=== PATIENT | male | born 1965 | race Caucasian/White ===

== ENCOUNTER 2018-08-06 21:01 | Emergency (ER) | payer OTHER, MEDICAID, SELFPAY ==
[2018-08-06] VITALS (7 sets, daily range): BP systolic 145–178; BP diastolic 90–112; PULSE 74–126; RESP 15–22; TEMP 36.9; O2SAT 95–99; BMI 25.8
--- NOTE | 2018-08-06 21:22 | ED.DENTAL ---
HPI - Dental/Oral General Chief complaint: Dental/Oral Stated complaint: TOOTH PAIN Time Seen by Provider: 08/06/18 21:21 Source: patient Mode of arrival: ambulatory Limitations: no limitations History of Present Illness HPI Narrative: Patient is a 53-year-old male who presents with right-sided facial swelling. He states that this started 3 days ago after he tried to pull the tooth out with pliers. He sometimes has status bit of but overall seems to be tolerating his secretions. No redness he denies any fever. He says that his tetanus is up-to-date. He just needs some penicillin. Heart rate initially was tachycardic at triage but 15 minutes later does seem to be improved. MD Complaint: tooth pain 1. Teeth 32 through 28 are missing. Related Data Previous Rx's Medication Instructions Recorded amoxicillin-pot clavulanate 875 mg PO BID #14 tab 08/07/16 [Augmentin] metronidazole [Flagyl] 500 mg PO Q6H 10 Days #0 tab 02/28/17 amoxicillin 500 mg PO TID 7 Days #21 cap 08/06/18 amoxicillin 500 mg PO TID 7 Days #210 ml 08/06/18 Allergies Allergy/AdvReac Type Severity Reaction Status Date / Time No Known Drug Allergies Allergy Verified 08/06/18 22:14 Review of Systems Review of Systems ROS Unobtainable: All systems reviewed & are unremarkable except as noted in HPI and below Constitutional Denies chills, Denies fever(s), Denies lethargy and Denies weakness Eyes Denies change in vision, Denies eye discharge, Denies irritation and Denies loss of vision ENT Ears, Nose, Mouth, and Throat: Reports as per HPI Cardiovascular Denies chest pain, Denies irregular heart rhythm, Denies lightheadedness, Denies palpitations, Denies dyspnea, Denies dyspnea on exertion and Denies orthopnea Respiratory Denies cough, Denies dyspnea, Denies dyspnea on exertion and Denies wheezing Gastrointestinal Gastrointestinal: Denies abdominal pain, Denies change in bowel habits, Denies diarrhea, Denies nausea and Denies vomiting Musculoskeletal Denies back pain, Denies muscle weakness, Denies numbness and Denies tingling Integumentary/Breasts Denies pruritus, Denies erythema, Denies rash and Denies wounds Neurologic Denies loss of vision, Denies numbness, Denies tingling and Denies weakness Endocrine Denies palpitations Allergic/Immunologic Denies wheezing [facility] Medical History Patient denies significant medical history (Acute) Social History Smoking Status: Current every day smoker Social History Smoking Status: Current every day smoker Exam Initial Vital Signs Initial Vital Signs: Vital Signs Temperature 98.5 F 08/06/18 21:03 Pulse Rate 126 H 08/06/18 21:03 Respiratory Rate 22 08/06/18 21:03 Blood Pressure 178/112 H 08/06/18 21:03 Pulse Oximetry 97 08/06/18 21:03 GENERAL: [Well-appearing, well-nourished] and in [no acute] distress. HEENT: Head atraumatic,EOMI, pupils reactive, f for right-sided lower facial swelling no redness. Patient low by mouth but due to swelling and pain not Stein. Managing secretions at this. No uvula swelling or deviation. No significant tongue swelling. CARDIOVASCULAR: Regular rate and rhythm without murmurs, rubs or gallops. RESPIRATORY: Breath sounds equal bilaterally, no wheezes rales or rhonchi. ABDOMEN: Soft, nontender. Normoactive bowel sounds all 4 quadrants. No guarding or rebound. EXTREMITIES: Normal range of motion, no clubbing or edema. Neurovascularly intact NEUROLOGICAL: Alert and oriented x4.Normal gait and speech. Cranial nerves II through XII grossly intact. SKIN: Warm, dry, no laceration, no petechiae, no rashes or lesions. Course Orders Ordered: ED Orders 08/06/18 21:35 Basic Metabolic Panel Stat Complete Blood Count AUTO DIFF Stat Discontinued Medications Ampicillin Sodium/Sulbactam (Sodium 3 gm/ Sodium Chloride) 100 mls @ 100 mls/hr IV NOW ONE Stop: 08/06/18 21:22 Last Infusion: 08/06/18 23:31 Dose: 0 mls/hr Admin: 08/06/18 22:15 Dose: 100 mls/hr Ketorolac Tromethamine (Toradol) 30 mg IV NOW ONE Stop: 08/06/18 21:22 Last Admin: 08/06/18 22:17 Dose: 30 mg Vital Signs - 8 hr 08/06/18 21:03 08/06/18 21:16 08/06/18 21:30 Temperature 98.5 F Pulse Rate 126 H 74 77 Respiratory Rate 22 17 18 Blood Pressure 178/112 H Blood Pressure [Right Arm] 172/98 H 170/104 H Pulse Oximetry 97 95 98 08/06/18 22:00 08/06/18 22:30 08/06/18 23:00 Temperature Pulse Rate 80 87 85 Respiratory Rate 17 15 18 Blood Pressure Blood Pressure [Right Arm] 156/92 H 146/101 H 145/90 H Pulse Oximetry 97 97 97 08/06/18 23:39 Temperature Pulse Rate 84 Respiratory Rate 18 Blood Pressure 145/96 H Blood Pressure [Right Arm] Pulse Oximetry 99 MDM - Dental/Oral Lab Data Attestation: I reviewed the patient's lab results. Result diagrams: 08/06/18 21:35 08/06/18 21:35 Lab Results 08/06/18 08/06/18 Range/Units 21:35 21:35 WBC 11.7 H (4.5-11.0) X10^3/uL RBC 5.29 (4.5-5.9) X10^6/uL Hgb 15.4 (13.5-17.5) g/dL Hct 45.0 (41-53) % MCV 85.1 (80-100) fL MCH 29.1 (26-34) PG MCHC 34.2 (30-36) % RDW 13.3 (11.6-14.8) % Plt Count 252 (150-400) X10^3/uL Neut % (Auto) 73.9 (50-75) % Lymph % (Auto) 13.7 L (25-40) % [place] % (Auto) 10.9 (3-14) % Eos % (Auto) 0.8 L (2-4) % Baso % (Auto) 0.7 (0-2) % Neut # (Auto) 8700 H (3642-5451) /uL Lymph # (Auto) 1600 (0353-7753) /uL [place] # (Auto) 1300 H (0-900) /uL Eos # (Auto) 100 (0-450) /uL Baso # (Auto) 100 (0-100) /uL Sodium 136 L (137-145) mmol/L Potassium 4.0 (3.4-5.1) mmol/L Chloride 97 L (98-107) mmol/L Carbon Dioxide 31 (22-32) mmol/L BUN 11 (9-20) mg/dL Creatinine 1.00 (0.66-1.25) mg/dL Estimated GFR > 60.0 (>60) mL/min BUN/Creatinine Ratio 11.0 (6-22) Glucose 105 H (70-100) mg/dL Calcium 9.2 (8.4-10.2) mg/dL MDM Narrative Medical decision making narrative: Patient is managing secretions. He is able to swallow water. He is given 1 dose of Unasyn for be placed on amoxicillin. He has previously tried to pull other TP states that it is difficult to get into a dentist. At this time I do not appreciate any sort of airway. No indication for any imaging. Patient states that he can and will fill his antibiotics. Discharge Plan Departure Patient Disposition: Home Clinical Impression: Dental abscess Discharge Date/Time: 08/06/18 23:41 Interventions: ED Discharge Assessment Last Done: 08/06/18 23:39 Instructions: Tooth Abscess Activity Restrictions/Additional Instructions: *You have been diagnosed with dental infection *What to do: Increase fluids as tolerated, do not pull your own teeth. Please go to a dentist *Continue to take medications as directed amoxicillin 500 mg 3 times daily for 1 week *Follow up with your primary care provider in 2-3 days *Return to ER if you should have increasing facial swelling, inability to swallow your spit, increased difficulty breathing or any new, worsening or concerning symptoms Prescriptions: New amoxicillin 500 mg capsule 500 mg PO TID 7 Days Qty: 21 RF: 0 amoxicillin 250 mg/5 mL suspension for reconstitution 500 mg PO TID 7 Days Qty: 210 RF: 0 No Action amoxicillin-pot clavulanate [Augmentin] 875 MG/125 MG tablet 875 mg PO BID Qty: 14 RF: 0 metronidazole [Flagyl] 500 MG tablet 500 mg PO Q6H 10 Days Qty: 0 RF: 0 Referrals: [facility] [Outside]
[2018-08-06 21:43] LABS: Add Manual Diff / Slide Review NO; Basophils Absolute Auto 100 /uL (0-100); Basophils Percent Auto 0.7 % (0-2); Eosinophils Absolute Auto 100 /uL (0-450); Eosinophils Percent Auto 0.8 % (2-4); Hemoglobin 15.4 g/dL (13.5-17.5); Lymphocytes Absolute Auto 1600 /uL (1100-4500); Lymphocytes Percent Auto 13.7 % (25-40); Mean Corpuscular HGB Conc 34.2 % (30-36); Mean Corpuscular Hemoglobin 29.1 PG (26-34); Mean Corpuscular Volume 85.1 fL (80-100); Monocytes Absolute Auto 1300 /uL (0-900); Monocytes Percent Auto 10.9 % (3-14); Neutrophils Absolute Auto 8700 /uL (1500-7000); Neutrophils Percent Auto 73.9 % (50-75); Platelet Count 252 X10^3/uL (150-400); Red Blood Cell Count 5.29 X10^6/uL (4.5-5.9); Red Cell Distribution Width 13.3 % (11.6-14.8); White Blood Cell Count 11.7 X10^3/uL (4.5-11.0)
[2018-08-06 21:58] LABS: Blood Urea Nitrogen 11 mg/dL (9-20); Calcium 9.2 mg/dL (8.4-10.2); Carbon Dioxide 31 mmol/L (22-32); Chloride 97 mmol/L (98-107); Estimated Glomerular Filt Rate > 60.0 mL/min (>60); Glucose 105 mg/dL (70-100); HEMOLYSIS < 15 (0-50); Sodium 136 mmol/L (137-145)
[2018-08-06] MEDS: AMPICILLIN/SULBACTAM 3 GM 3 GM in SODIUM CHLORIDE 0.9% 100 ML IV (22:15)
[2018-08-06] MEDS: KETOROLAC 60 MG/2 ML VIAL 30 MG IV (22:17)
--- NOTE | 2018-08-06 23:42 | PC.NURSE ---
pt reports trying to pull tooth himself just like the others he has pulled himself. He states this has never happend before when he pulls his own teeth.
== END 2018-08-06 23:41 | disposition home or self-care (01) ==
PROVIDERS: Emergency Provider Emergency Medicine
DX: K04.7 Periapical abscess without sinus (principal)
CPT/HCPCS: 36591; 80048; 85025; 96365; 96375; 99283; 99284; J0295; J1885

== ENCOUNTER → 2020-05-19 18:25 | Outpatient (CLI) | payer OTHER, MEDICAID, SELFPAY ==
[2020-05-19 19:24] LABS: COVID19 -Nasal RAPID Negative (Negative)
== END ==
PROVIDERS: Visit Provider Physician Assistant
DX: J02.9 Acute pharyngitis, unspecified (principal); Z20.822 Contact with and (suspected) exposure to COVID-19
CPT/HCPCS: 87635

== ENCOUNTER 2020-05-28 18:22 | Emergency (ER) | payer OTHER, MEDICAID, SELFPAY ==
[2020-05-28] VITALS (12 sets, daily range): BP systolic 137–157; BP diastolic 84–96; PULSE 79–103; RESP 20; TEMP 37.5; O2SAT 93–99
--- NOTE | 2020-05-28 18:51 | DI.CT.S_ITS ---
PROCEDURE: CT SOFT TISSUE NECK W CON INDICATIONS: severe throat pain, trismus TECHNIQUE: After the administration of intravenous contrast, 3.0 mm axial sections acquired from the sella to the aortic arch. Additional oblique axial 3.0 mm sections acquired through the pharynx. 3 mm thick coronal and sagittal reformats were generated. For radiation dose reduction, the following was used: automated exposure control. COMPARISON: None. FINDINGS: Image quality: Excellent. Lymph nodes: Enlarged bilateral submandibular lymph nodes are seen measures up to 11 millimeter in short axis diameter series 2, image 52. Enlarged lymph nodes are also seen in bilateral posterior triangle more prominent on the right side and measures up to 8 millimeter in short axis diameter. Vessels: Visualized vasculature appears patent. Neck spaces: Asymmetric enlargement of right parapharyngeal tonsil it is seen with marked narrowing of right oral pharyngeal airway . 2.1 x 2.8 x 2.2 cm hypodense collection with peripheral enhancing wall is seen within enlarged right pharyngeal tonsil consistent with tonsillar abscess collection. Smaller ill-defined hypodensity within mildly enlarged left parapharyngeal tonsil is seen and measures approximately 6 x 5 mm in size suggestive of a smaller tonsillar abscess collection. Narrowing of right pharyngeal airway is also noted. Significant effacement of right piriform sinus is seen. The vocal cords, false vocal cords, left piriform sinus, epiglottis, and vallecular all appear normal. Glands: The parotid and submandibular glands appear normal. Thyroid gland is within normal limits Miscellaneous: Visualized brain and orbits appear normal. Lung apices appear clear. Superficial soft tissues appear normal. Bones: No suspicious bony lesions. Visualized sinuses and mastoids appear unremarkable. IMPRESSION: 1. Finding is consistent with extensive parapharyngeal tonsillitis worse on the right side with 2.1 x 2.8 x 2.2 cm right tonsillar abscess an a tiny 6 x 5 mm left tonsillar abscess. Significant right-sided narrowing of right oral pharyngeal and pharyngeal airway. 2. Enlarged neck soft tissue lymph nodes consistent with reactive inflammatory lymphadenopathy. Dictated by: Terrence Reaves M.D. on 05/28/2020 at 19:45 Approved by: Terrence Reaves M.D. on 05/28/2020 at 19:52
[2020-05-28 19:16] LABS: Add Manual Diff / Slide Review NO; Basophils Absolute Auto 100 /uL (0-100); Basophils Percent Auto 0.4 % (0-2); Eosinophils Absolute Auto 100 /uL (0-450); Eosinophils Percent Auto 0.3 % (2-4); Lymphocytes Absolute Auto 1500 /uL (1100-4500); Lymphocytes Percent Auto 9.2 % (25-40); Mean Corpuscular HGB Conc 33.2 % (30-36); Mean Corpuscular Hemoglobin 28.4 PG (26-34); Mean Corpuscular Volume 85.4 fL (80-100); Monocytes Absolute Auto 1400 /uL (0-900); Monocytes Percent Auto 8.6 % (3-14); Neutrophils Absolute Auto 13300 /uL (1500-7000); Neutrophils Percent Auto 81.5 % (50-75); Platelet Count 326 X10^3/uL (150-400); Red Blood Cell Count 5.27 X10^6/uL (4.5-5.9); Red Cell Distribution Width 12.8 % (11.6-14.8); White Blood Cell Count 16.3 X10^3/uL (4.5-11.0)
[2020-05-28] MEDS: SODIUM CHLORIDE 0.9% 1,000 ML 1000 ML IV (19:19)
[2020-05-28] MEDS: dexAMETHasone 20 MG in SODIUM CHLORIDE 0.9% 50 ML 208 ML IV (19:20)
[2020-05-28 19:21] LABS: BUN Creatinine Ratio 17.8 (6-22); Blood Urea Nitrogen 18 mg/dL (9-20); Calcium 9.4 mg/dL (8.4-10.2); Carbon Dioxide 29 mmol/L (22-32); Chloride 99 mmol/L (98-107); Estimated Glomerular Filt Rate > 60.0 mL/min (>60); Glucose 106 mg/dL (70-100); HEMOLYSIS < 15 (0-50); Potassium 4.4 mmol/L (3.4-5.1); Sodium 136 mmol/L (137-145)
[2020-05-28] MEDS: KETOROLAC 60 MG/2 ML VIAL 15 MG IV (19:21)
[2020-05-28] MEDS: AMPICILLIN/SULBACTAM 3 GM 3 GM in SODIUM CHLORIDE 0.9% 100 ML IV (19:23)
[2020-05-28] MEDS: LIDOCAINE 1% W/EPI 1 ML SUBCUT (19:23)
[2020-05-28 21:26] LABS: COVID19 - ADMIT (NP swab/PCR) Negative (Negative)
[2020-05-28] MEDS: TETRACAINE/BENZOCAINE/BUTAMBEN (CETACAINE) BOTTLE 1 SPRAY TOP (21:51)
--- NOTE | 2020-05-28 21:55 | PC.NURSE ---
Dr. Braga ENT at bedside.
--- NOTE | 2020-05-29 01:34 | ED.URI ---
HPI - URI/Sore Throat General Chief Complaint: Upper Respiratory Symptoms Stated Complaint: SWELLING OF THE THROAT Time Seen by Provider: 05/28/20 18:25 Source: patient Mode of arrival: Ambulatory Limitations: no limitations History of Present Illness HPI Narrative: 55-year-old male daily smoker and occasional drinker presents with upwards of 1 week of worsening throat pain. He was seen and evaluated in the walk-in clinic about 7 days ago and had a negative COVID swab and rapid strep test. There was a thought that his symptoms were perhaps due to posterior nasal drip and he was started on Flonase and antihistamines. Over the course of the week he has developed worsening pain, difficulty swallowing and even voice change. He has significant pain on the right, worse than left. He denies any trouble controlling secretions or breathing. MD Complaint: sore throat Onset (ago): day(s) Duration: progressively worsening Severity: severe Exacerbating factors: swallowing Description of mucous: clear Able to tolerate fluids by mouth: Yes Associated symptoms: chills and voice changes Treatments prior to arrival: cold medicine Related Data Previous Rx's Medication Instructions Recorded fluticasone propionate 50 1 spray INTRANASAL BID PRN #9.9 ml 05/19/20 mcg/actuation nasal spray,suspension loratadine 10 mg tablet 10 mg PO Q24H #30 tab 05/19/20 amoxicillin-pot clavulanate 1 tab PO BID #20 tab 05/28/20 [Augmentin] Allergies Allergy/AdvReac Type Severity Reaction Status Date / Time No Known Drug Allergies Allergy Verified 05/19/20 18:23 Review of Systems Constitutional Constitutional: Reports chills, Denies fatigue, Denies fever(s), Denies frequent falls, Denies lethargy and Denies weakness Eyes Eyes: Denies change in vision, Denies eye discharge, Denies irritation and Denies loss of vision ENT Ears, Nose, Mouth, and Throat: Denies change in voice, Denies dizziness, Denies neck pain, Reports sore throat and Reports throat swelling Cardiovascular Cardiovascular: Denies chest pain, Denies irregular heart rhythm, Denies lightheadedness, Denies palpitations, Denies dyspnea, Denies dyspnea on exertion and Denies orthopnea Respiratory Respiratory: Denies cough, Denies dyspnea, Denies dyspnea on exertion and Denies wheezing Gastrointestinal Gastrointestinal: Denies abdominal pain, Denies change in bowel habits, Denies diarrhea, Denies nausea and Denies vomiting Musculoskeletal Musculoskeletal: Denies neck pain and Denies numbness Integumentary/Breasts Skin/Breast: Denies pruritus, Denies erythema, Denies rash and Denies wounds Neurologic Neurologic: Denies behavioral changes, Denies confusion, Denies dizziness, Denies frequent falls, Denies loss of vision, Denies numbness and Denies weakness Psychiatric Psychiatric: Denies anxiety, Denies behavioral changes, Denies confusion, Denies depression, Denies homicidal ideation and Denies suicidal ideation Endocrine Endocrine: Denies fatigue, Denies flushing and Denies palpitations Hematologic/Lymphatic Hematologic/Lymphatic: Denies easy bruising Allergic/Immunologic Allergic/Immunologic: Denies urticaria, Reports throat swelling and Denies wheezing Patient History Medical History Patient denies significant medical history Social History Smoking Status: Current every day smoker Smoking Status: Current every day smoker alcohol intake frequency: 3 or more drinks per day Substance Use Type: does not use Exam Narrative Exam Narrative: GENERAL: [55] year old patient appears stated age. Well-nourished, well-developed patient, in mild distress. Voice change is noted, no trouble handling secretions HEAD: Atraumatic. Normocephalic. EYES: Pupils equal round and reactive. Extraocular motions intact. No scleral icterus. No injection or drainage. ENT: Nose without bleeding, purulent drainage. Throat with significant erythema and large right-sided peritonsillar abscess NECK: Trachea midline. Non tender CARDIOVASCULAR: Regular rate and rhythm without murmurs, gallops, or rubs. RESPIRATORY: Clear to auscultation. Breath sounds equal bilaterally. No wheezes, rales, or rhonchi. GASTROINTESTINAL: Abdomen soft, non-tender, nondistended. EXTREMITIES: No edema or joint tenderness. BACK: Nontender without deformity or crepitance. No flank tenderness. NEURO: AOx3. SKIN: No rash or erythema of visible areas Initial Vital Signs Initial Vital Signs: Vital Signs Temperature 99.5 F 05/28/20 18:42 Pulse Rate 103 H 05/28/20 18:42 Respiratory Rate 20 05/28/20 18:42 Blood Pressure 147/96 H 05/28/20 18:42 Pulse Oximetry 99 05/28/20 18:42 Procedures Abscess I/D I&D #1: Site: oral Side (if applicable): right Local Anesthetic: lidocaine 1% and with epi Amount of anesthesia used (mL): 4 Technique: needle aspiration Irrigation: No Packing used?: none Complications: other Course Orders Ordered: ED Orders 05/28/20 18:51 CT soft tissue neck w con Stat 05/28/20 18:59 Basic Metabolic Panel Stat Complete Blood Count AUTO DIFF Stat 05/28/20 20:36 COVID19 - ADMIT (W[employer] QUALITY ANALYST swab/PCR) Stat Discontinued Medications Benzocaine/Butamben/Tetracaine HCl (Tetracaine/Benzocaine/Butamben (Cetacaine) Bottle) 1 spray TOP NOW ONE Stop: 05/28/20 20:17 Last Admin: 05/28/20 21:51 Dose: 1 spray Documented by: CIRILO Sodium Chloride (Normal Saline 0.9%) 1,000 mls @ 1,000 mls/hr IV BOLUS ONE Stop: 05/28/20 19:50 Last Infusion: 05/28/20 22:17 Dose: 0 mls/hr Documented by: Admin: 05/28/20 19:19 Dose: 1,000 mls/hr Documented by: CIRILO Dexamethasone 20 mg/ Sodium (Chloride) 52 mls @ 208 mls/hr IV NOW ONE Stop: 05/28/20 18:52 Last Infusion: 05/28/20 19:55 Dose: 0 mls/hr Documented by: Admin: 05/28/20 19:20 Dose: 208 mls/hr Documented by: CIRILO Ampicillin Sodium/Sulbactam (Sodium 3 gm/ Sodium Chloride) 100 mls @ 100 mls/hr IV NOW ONE Stop: 05/28/20 18:52 Last Infusion: 05/28/20 21:50 Dose: 0 mls/hr Documented by: Infusion: 05/28/20 19:55 Dose: 100 mls/hr Documented by: Infusion: 05/28/20 19:23 Dose: 0 mls/hr Documented by: Admin: 05/28/20 19:23 Dose: 100 mls/hr Documented by: CIRILO Ketorolac Tromethamine (Ketorolac 60 Mg/2 Ml Vial) 15 mg IV NOW ONE Stop: 05/28/20 18:52 Last Admin: 05/28/20 19:21 Dose: 15 mg Documented by: CIRILO Lidocaine/Epinephrine (Lidocaine 1% W/Epi) 1 ml SUBCUT NOW ONE Stop: 05/28/20 18:52 Last Admin: 05/28/20 19:23 Dose: 1 ml Documented by: CIRILO Consultations Consultation #1: After unsuccessful attempt at draining this large abscess I consulted on-call ENT who agreed to come and see the patient. After performing his own history and physical he attempted drainage at the bedside and was also unsuccessful. Vital Signs Vital signs: Vital Signs - 8 hr 05/28/20 18:42 05/28/20 19:26 05/28/20 19:39 Temperature 99.5 F Pulse Rate 103 H 79 95 H Respiratory Rate 20 Blood Pressure 147/96 H Pulse Oximetry 99 97 96 05/28/20 19:40 05/28/20 20:00 05/28/20 20:30 Temperature Pulse Rate 86 84 Respiratory Rate Blood Pressure 157/85 H 144/84 H Pulse Oximetry 96 94 96 05/28/20 20:34 05/28/20 21:00 05/28/20 21:26 Temperature Pulse Rate 94 H 88 83 Respiratory Rate Blood Pressure 137/95 H 146/87 H Pulse Oximetry 93 94 96 05/28/20 21:30 05/28/20 21:55 05/28/20 22:00 Temperature Pulse Rate 98 H 82 Respiratory Rate Blood Pressure 143/89 H 145/95 H Pulse Oximetry 96 96 MDM - URI/Sore Throat Lab Data Result diagrams: 05/28/20 18:59 05/28/20 18:59 Labs: Lab Results 05/28/20 05/28/20 05/28/20 Range/Units 18:59 18:59 20:36 WBC 16.3 H (4.5-11.0) X10^3/uL RBC 5.27 (4.5-5.9) X10^6/uL Hgb 15.0 (13.5-17.5) g/dL Hct 45.0 (41-53) % MCV 85.4 (80-100) fL MCH 28.4 (26-34) PG MCHC 33.2 (30-36) % RDW 12.8 (11.6-14.8) % Plt Count 326 (150-400) X10^3/uL Neut % (Auto) 81.5 H (50-75) % Lymph % (Auto) 9.2 L (25-40) % [place] % (Auto) 8.6 (3-14) % Eos % (Auto) 0.3 L (2-4) % Baso % (Auto) 0.4 (0-2) % Neut # (Auto) 56867 H (7620-3225) /uL Lymph # (Auto) 1500 (5538-5645) /uL [place] # (Auto) 1400 H (0-900) /uL Eos # (Auto) 100 (0-450) /uL Baso # (Auto) 100 (0-100) /uL Sodium 136 L (137-145) mmol/L Potassium 4.4 (3.4-5.1) mmol/L Chloride 99 (98-107) mmol/L Carbon Dioxide 29 (22-32) mmol/L BUN 18 (9-20) mg/dL Creatinine 1.01 (0.66-1.25) mg/dL Estimated GFR > 60.0 (>60) mL/min BUN/Creatinine Ratio 17.8 (6-22) Glucose 106 H (70-100) mg/dL Calcium 9.4 (8.4-10.2) mg/dL SARS-CoV-2 (PCR) Negative (Negative) Imaging Data CT Soft Tissue Neck: Radiologist's Impression: [address] [id number] Scan ReportSigned Patient: Srinivas Alcantara LMR#: [id number]: 1965Acct:[id number]/Sex: 55 / MDate of Service: 05/28/20Loc: EDAccession Number: [id number] Procedure: CT soft tissue neck w con Ordering Provider: Remy Rogers D.O. PROCEDURE: CT SOFT TISSUE NECK W CON INDICATIONS: severe throat pain, trismus TECHNIQUE: After the administration of intravenous contrast, 3.0 mm axial sections acquired from the sella to the aortic arch. Additional oblique axial 3.0 mm sections acquired through the pharynx. 3 mm thick coronal and sagittal reformats were generated. For radiation dose reduction, the following was used: automated exposure control. COMPARISON: None. FINDINGS: Image quality: Excellent. Lymph nodes: Enlarged bilateral submandibular lymph nodes are seen measures up to 11 millimeter in short axis diameter series 2, image 52. Enlarged lymph nodes are also seen in bilateral posterior triangle more prominent on the right side and measures up to 8 millimeter in short axis diameter. Vessels: Visualized vasculature appears patent. Neck spaces: Asymmetric enlargement of right parapharyngeal tonsil it is seen with marked narrowing of right oral pharyngeal airway . 2.1 x 2.8 x 2.2 cm hypodense collection with peripheral enhancing wall is seen within enlarged right pharyngeal tonsil consistent with tonsillar abscess collection. Smaller ill-defined hypodensity within mildly enlarged left parapharyngeal tonsil is seen and measures approximately 6 x 5 mm in size suggestive of a smaller tonsillar abscess collection. Narrowing of right pharyngeal airway is also noted. Significant effacement of right piriform sinus is seen. The vocal cords, false vocal cords, left piriform sinus, epiglottis, and vallecular all appear normal. Glands: The parotid and submandibular glands appear normal. Thyroid gland is within normal limits Miscellaneous: Visualized brain and orbits appear normal. Lung apices appear clear. Superficial soft tissues appear normal. Bones: No suspicious bony lesions. Visualized sinuses and mastoids appear unremarkable. IMPRESSION: 1. Finding is consistent with extensive parapharyngeal tonsillitis worse on the right side with 2.1 x 2.8 x 2.2 cm right tonsillar abscess an a tiny 6 x 5 mm left tonsillar abscess. Significant right-sided narrowing of right oral pharyngeal and pharyngeal airway. 2. Enlarged neck soft tissue lymph nodes consistent with reactive inflammatory lymphadenopathy. Dictated by: Terrence Reaves M.D. on 05/28/2020 at 19:45 Approved by: Terrence Reaves M.D. on 05/28/2020 at 19:52 [facility] Narrative Medical decision making narrative: Patient did feel a bit better after above-stated therapies but with unsuccessful drainage of this large abscess causing some compromise of the airway both myself and ENT recommended the patient stay in the hospital. Though the patient obviously demonstrated capacity to make his own decisions and clearly understood the severity of his diagnosis he elected to leave. I spoke with him about the potential for this to advance, possibly rapidly and lead to permanent disability or even . He states he understands this and was going to leave for few hours to take care of some things at home and then he would be back. I did ask him to sign an Against Medical Advice and we removed the IV. Discharge Plan Departure Patient Disposition: Left Against Medical Advice Clinical Impression: Abscess, peritonsillar Instructions: DI for Peritonsillar Abscess -- Adult Activity Restrictions/Additional Instructions: *You have been diagnosed with [you have a large, very concerning and dangerous abscess in the back of your throat. I would very much like to keep you in the hospital and this is also the strong recommendation of the ear nose and throat surgeon. I have included antibiotics and contact information for your nose and throat in the event that you are unable to make it back this evening *What to do: *Take medications as directed *Follow up with your primary care provider in 2-3 days, call for an appointment. Let them know you were seen in the Emergency Department and that we ask that you be seen in follow up *Return to ER if you should have any new, worsening or concerning symptoms, such as [worsening pain, trouble swallowing, trouble breathing, increased swelling or other bothersome symptoms] Prescriptions: New amoxicillin-pot clavulanate [Augmentin] 875-125 mg tablet 1 tab PO BID Qty: 20 RF: 0 No Action fluticasone propionate [Allergy Relief (fluticasone)] 50 mcg/actuation spray,suspension 1 spray intranasal BID PRN (Reason: allergy symptoms) Qty: 9.9 RF: 0 loratadine [Claritin] 10 mg tablet 10 mg PO Q24H Qty: 30 RF: 0 Stand Alone Forms: Against Medical Advice
== END 2020-05-28 22:16 | disposition left against medical advice (07) ==
PROVIDERS: Emergency Provider Emergency Medicine
DX: J36 Peritonsillar abscess (principal)
CPT/HCPCS: 36415; 42700; 70491; 80048; 85025; 87635; 96365; 96366; 96368; 96375; 99284; J0295; J1100; J1885; Q9967

== ENCOUNTER 2020-05-29 12:10 | Emergency (ER) | payer OTHER, MEDICAID, SELFPAY ==
[2020-05-29 12:10] VITALS: BP 147/93; PULSE 102; RESP 14; TEMP 36.2; O2SAT 97; BMI 25.1
--- NOTE | 2020-05-29 15:00 | PC.NURSE ---
Patient snoring, wakes with verbal stimulation. Upon waking requesting to leave, updated patient on plan. Awaiting provider evaluation.
--- NOTE | 2020-05-29 15:25 | ED.URI ---
HPI - URI/Sore Throat General Chief Complaint: Upper Respiratory Symptoms Stated Complaint: ABSCESS BACK OF THROAT Time Seen by Provider: 05/29/20 14:49 Source: patient and old records reviewed Mode of arrival: Ambulatory Limitations: no limitations History of Present Illness HPI Narrative: This is a 55-year-old male who returns after leaving against medical advice overnight. Patient has a peritonsillar abscess. He had attempted drainage by Dr. alvarado without success and was then attempted by ENT with Dr. Braga who also felt that was unsuccessful. They wish to keep him for IV antibiotics and observation in the hospital patient stated he needed to leave patient states he did not get the paperwork or prescription for antibiotics. He states he feels significantly better at this time he states his voice has improved. He has been able to drink although he has not felt like he can drink eat solid food. He has been afebrile. He states he is able to handle his saliva and secretions without issues. He does not wish to be admitted at this time. Does not wish for additional workup at this time. He would like to be discharged with the oral antibiotics. Patient denies other medical issues. He denies any regular medications. He denies any prior surgeries. He denies any allergies to medications. We did discuss at length the risks versus benefits which he states he understands and states that he will return immediately if he feels he is worsening at all. Related Data Previous Rx's Medication Instructions Recorded fluticasone propionate 50 1 spray INTRANASAL BID PRN #9.9 ml 05/19/20 mcg/actuation nasal spray,suspension loratadine 10 mg tablet 10 mg PO Q24H #30 tab 05/19/20 amoxicillin-pot clavulanate 1 tab PO BID #20 tab 05/28/20 [Augmentin] amoxicillin-pot clavulanate 1 tab PO Q12H #20 tab 05/29/20 [Augmentin] prednisone See Rx Instructions .ROUTE 05/29/20 .COMPLEX #16 ea Allergies Allergy/AdvReac Type Severity Reaction Status Date / Time No Known Drug Allergies Allergy Verified 05/29/20 12:15 Review of Systems Review of Systems ROS Unobtainable: All systems reviewed & are unremarkable except as noted in HPI and below Patient History Medical History (Updated 05/29/20 @ 15:43 by Milagros Pierre DO) Patient denies significant medical history Social History Smoking Status: Current every day smoker Smoking Status: Current every day smoker alcohol intake frequency: 3 or more drinks per day Substance Use Type: methamphetamine Exam Narrative Exam Narrative: GEN: Male appears older than stated age, alert and oriented x 3, patient appears to be in mild distress. HEENT: Atraumatic, pupils are equal round reactive to light, extraocular movements are intact, nares are clear, TMs are clear with no fluid..= Throat is erythematous, the right posterior thigh are throat is quite swollen with uvula displaced to the left. Patient is able to swallow secretions. He is hoarse but does not have a muffled voice. Patient was sleeping comfortably on his side when I arrived to the room. Patient awakens easily. HEART: Regular rate and rhythm without murmur, clicks, rubs. LUNGS:Lungs clear to auscultation, no wheezes, rales, crackles, chest moves symmetrically ABD:bowel sounds normal, soft, non-tender, no guarding, rebound, rigidity, no masses noted, no hepatosplenomegaly MSCL: Non-tender, no muscle atrophy, muscles strength 5/5 upper and lower extremities, full range of motion, normal gait NEURO:CN 2-12 intact, sensation normal SKIN: Rashes or skin changes appreciated. Initial Vital Signs Initial Vital Signs: Vital Signs Temperature 97.2 F L 05/29/20 12:10 Pulse Rate 102 H 05/29/20 12:10 Respiratory Rate 14 05/29/20 12:10 Blood Pressure 147/93 H 05/29/20 12:10 Pulse Oximetry 97 05/29/20 12:10 Course Vital Signs Vital signs: Vital Signs - 8 hr 05/29/20 12:10 05/29/20 15:50 05/29/20 15:51 Temperature 97.2 F L Pulse Rate 102 H Respiratory Rate 14 Blood Pressure 147/93 H 157/91 H Pulse Oximetry 97 69 L 75 L 05/29/20 15:54 Temperature Pulse Rate 94 H Respiratory Rate Blood Pressure 157/91 H Pulse Oximetry 98 MDM - URI/Sore Throat MDM Narrative Medical decision making narrative: This is a 55-year-old male comes emergency department who left against medical advice for peritonsillar abscess with attempted drainage x2 without success. Patient had CT imaging as well as labs overnight. Findings showed extensive parapharyngeal tonsillitis worse on the right with a 2.1 x 2.8 x 2.2 cm right tonsillar abscess and a tiny 6 x 5 mm left tonsillar abscess. Significant right-sided narrowing of the right oropharyngeal and pharyngeal airway. And there were enlarged soft tissue lymph nodes consistent with reactive inflammatory lymphadenopathy. Patient had a 16 with a leftward shift. Unasyn, dexamethasone and IVFluids in the department. Patient politely refuses admission at this time. He has improved and he states his voice is improved and in comparison to Dr. Rodriges note patient is clinically improved. Plan to we right patient's Augmentin prescription as well as a prescription for tapering steroid dose. Patient asked to return and agrees to do so if he is having any worsening symptoms. Discharge Plan Departure Patient Disposition: Home Clinical Impression: Abscess, peritonsillar Instructions: DI for Peritonsillar Abscess -- Adult Activity Restrictions/Additional Instructions: Follow up with ENT this week. Call for an appointment. It is recommended that you stay for hospitalization if you are not improving or worsening please return at anytime. Take antibiotics until gone. Start your oral antibiotics this afternoon. Take steroids until gone. Prescription to [facility] in [place]. You may take Tylenol up to a 1000 mg and/or ibuprofen up to 800 mg needed for pain. Please return immediately for fevers, worsening swelling, difficulty swallowing, increasing hoarseness, muffled voice, stridor or high-pitched wheezing with breathing, if you feel the swelling in your throat is worsening, if you are unable to swallow your own saliva or fluids or if you are not having any improvement in her symptoms. Prescriptions: New amoxicillin-pot clavulanate [Augmentin] 875-125 mg tablet 1 tab PO Q12H Qty: 20 RF: 0 prednisone 10 mg tablets,dose pack See Rx Instructions .ROUTE .COMPLEX Qty: 16 RF: 0 No Action fluticasone propionate [Allergy Relief (fluticasone)] 50 mcg/actuation spray,suspension 1 spray intranasal BID PRN (Reason: allergy symptoms) Qty: 9.9 RF: 0 loratadine [Claritin] 10 mg tablet 10 mg PO Q24H Qty: 30 RF: 0 amoxicillin-pot clavulanate [Augmentin] 875-125 mg tablet 1 tab PO BID Qty: 20 RF: 0 Referrals: Cheikh Braga MD [Physician] -
[2020-05-29 15:50] VITALS: O2SAT 69
[2020-05-29 15:51] VITALS: BP 157/91; O2SAT 75
[2020-05-29 15:54] VITALS: BP 157/91; PULSE 94; O2SAT 98
== END 2020-05-29 15:55 | disposition home or self-care (01) ==
PROVIDERS: Emergency Provider Emergency Medicine
DX: J36 Peritonsillar abscess (principal)
CPT/HCPCS: 99281

== ENCOUNTER 2020-09-07 16:10 | Emergency (ER) | payer OTHER, MEDICAID, SELFPAY ==
[2020-09-07 16:22] VITALS: BP 134/75; PULSE 106; RESP 18; TEMP 36.9; O2SAT 96; BMI 25.1
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
[2020-09-07] MEDS: CYCLOBENZAPRINE 10 MG TABLET PO (17:30)
[2020-09-07 17:32] VITALS: BP 143/70; PULSE 94; RESP 18; O2SAT 97
[2020-09-07 17:45] VITALS: BP 143/72; PULSE 70; RESP 14; O2SAT 99
== END 2020-09-07 17:45 | disposition home or self-care (01) ==
PROVIDERS: Emergency Provider Emergency Medicine
DX: M62.838 Other muscle spasm (principal); M54.2 Cervicalgia
CPT/HCPCS: 99283